=== PATIENT | female | born 1965 | race Caucasian/White ===

== ENCOUNTER 2020-05-02 13:26 | Emergency (ER) | payer OTHER, SELFPAY ==
--- NOTE | ~2020-05-02 | XR_ITS ---
EXAMINATION: XR chest 1V portable INDICATION: Shortness of breath, cough, COVID 19 exposure TECHNIQUE: Portable AP chest at 1456 hours COMPARISON: None available FINDINGS: There are airspace opacities of the lung bases. No pleural effusion or pneumothorax is iden tified. The cardiomediastinal silhouette is normal. The visualized osseous structures are unremarkabl e. IMPRESSION: 1. Bibasilar airspace opacities, consistent with atelectasis versus pneumonia. Reviewed, dictated and finalized at location A. [employer]
[2020-05-02 13:28] VITALS: BP 143/83; PULSE 75; RESP 14; TEMP 36.6; O2SAT 97
--- NOTE | 2020-05-02 14:55 | ED.URI ---
HPI - URI/Sore Throat General Chief Complaint: Upper Respiratory Infection Stated Complaint: cough/congestion Time Seen by Provider: 05/02/20 14:08 Source: patient Mode of arrival: ambulatory Limitations: no limitations History of Present Illness HPI Narrative: Patient is a 54-year-old female who presents complaining of cough, congestion and shortness of breath x2 to 3 days. She reports intermittent body aches and chills, denies fever. Patient was concerned with flu. Patient reports known exposure to Covid. MD elicited complaint: cough Related Data Home Medications Medication Instructions Recorded Confirmed No Home Medications 05/02/20 05/02/20 Allergies Allergy/AdvReac Type Severity Reaction Status Date / Time codeine Allergy Unknown Verified 05/02/20 13:35 Review of Systems Review of Systems: Narrative: CONSTITUTIONAL: Denies fever, chills, or sweats. EYES: Denies visual changes, redness, or discharge. ENT: Denies rhinorrhea, congestion, sore throat, or otalgia. CARDIOVASCULAR: Denies chest pain, palpitations, or edema. RESPIRATORY: Reports cough or dyspnea. GASTROINTESTINAL: Denies abdominal pain, vomiting, or diarrhea. Reports nausea GENITOURINARY: Denies dysuria or hematuria. SKIN: Denies rash or itching. MUSCULOSKELETAL: Reports generalized myalgia NEUROLOGIC: Denies headache, numbness, dizziness, or weakness. PSYCHIATRIC: Denies anxiety or depression. PMFSH Past Medical History Medical History (Updated 05/02/20 @ 15:11 by GILLIAN Vinson) Patient denies medical problems Surgical History Surgical History (Updated 05/02/20 @ 14:58 by GILLIAN Vinson) History of hysterectomy Family History Family History (Updated 05/02/20 @ 14:59 by GILLIAN Vinson) Other No significant family history Social History Social History (Updated 05/02/20 @ 14:59 by GILLIAN Vinosn) Smoking status: Current every day smoker Alcohol intake: current Substance use: never Exam Narrative: Exam Narrative: GENERAL: Well-appearing, well-nourished, and in no acute distress. HEAD: Normocephalic, atraumatic. EYES:No redness or drainage. ENT: Mucous membranes pink and moist. CHEST: No respiratory distress. HEART: Regular rate and rhythm. EXTREMITIES: Normal range of motion. SKIN: Warm, dry, no rash. NEURO: No focal deficits. Alert and oriented x3. Gait steady. PSYCH: Normal affect. No signs of depression or anxiety. Course Vital Signs Vital signs: Vital Signs Temperature 36.6 C 05/02/20 13:28 Pulse Rate 75 05/02/20 13:28 Respiratory Rate 14 05/02/20 13:28 Blood Pressure 143/83 H 05/02/20 13:28 Pulse Oximetry 97 05/02/20 13:28 Temperature 36.6 C 05/02/20 13:28 Pulse Rate 75 05/02/20 13:28 Respiratory Rate 14 05/02/20 13:28 Blood Pressure 143/83 H 05/02/20 13:28 Pulse Oximetry 97 05/02/20 13:28 Reviewed-patient is informed that they may have pre-hypertension or hypertension based on a blood pressure reading. I recommend the patient call the primary care provider listed on their discharge instructions or a physician of their choice this week to arrange follow-up for further evaluation of possible pre-hypertension or hypertension. MDM - URI/Sore Throat MDM Narrative Medical decision making narrative: Patient's influenza test is negative, Covid testing completed in the emergency department. Patient's chest x-ray appears to have possible pneumonia. Patient is more than likely Covid positive. Discussed with patient the need for quarantine and symptoms in which she would need to return to the emergency department for further evaluation. Patient is stable for discharge to home with outpatient follow-up as needed. Differential Diagnosis Differential diagnosis: Likely upper respiratory infection, viral infection, bronchitis, influenza and pharyngitis Lab Data Labs: Influenza A Screen Negative
[2020-05-02 15:49] VITALS: BP 138/88; PULSE 88; RESP 20; O2SAT 95
[2020-05-03 18:50] LABS: SARS-CoV-2 RNA PCR Negative
== END 2020-05-02 15:54 | disposition home or self-care (01) ==
PROVIDERS: Emergency Provider Nurse Practitioner
DX: J06.9 Acute upper respiratory infection, unspecified (principal); Z20.822 Contact with and (suspected) exposure to COVID-19; F17.200 Nicotine dependence, unspecified, uncomplicated; R03.0 Elevated blood-pressure reading, without diagnosis of hypertension
CPT/HCPCS: 71045; 87804; 99283; C9803; U0003